=== PATIENT | male | born 1960 | race Caucasian/White ===

== ENCOUNTER 2017-02-27 14:20 | Emergency (ER) | payer OTHER ==
[2017-02-27 14:29] VITALS: TEMP 98.6
[2017-02-27 14:47] LABS: COLOR YELLOW; LEUKOCYTE ESTERASE,URINE NEGATIVE (NEGATIVE); NITRITE,URINE NEGATIVE (NEGATIVE); PH,URINE 6.5 (5.0-7.5)
--- NOTE | 2017-02-27 15:00 | UCPHY ---
H & P Time Seen by Provider: 02/27/17 14:58 Patient Type: Established HPI/ROS: CHIEF COMPLAINT: Right flank pain. HISTORY OF PRESENT ILLNESS: The patient is a 57-year-old male with a history of kidney stones who presents with atraumatic right flank pain since midnight last night. The pain woke him from sleep. The pain has not moved, nor migrated, nor expanded. It intermittently radiates to his right scapula. Usually when he gets kidney stones the pain radiates to his lower abdomen, wheree as this one does not. He denies movement related pain with getting in and out of bed, the stretcher here, or the car on his way here. He denies nausea, abdominal pain, vomiting, fever, dysuria, hematuria. He has had some loose stools since the day before the pain began. He takes a full breath fwithout difficulty. He has previously had surgical procedures to remove his kidney stones. He recalls lithotrypsy, not so sure about stents or basket retreival or laser. He is not ta take NSAIDS - not due to allergy or GI or renal issues. But, he had a stem cell injection through the pharynx into the base of the skull and C spine to see if he could get more stability. This occurred in early January. Aortic DIssection RF: none PE risk factors: none REVIEW OF SYSTEMS: Constitutional: No fever, no chills. Eyes: No diplopia. ENT: No sore throat. Cardiovascular: No chest pain, no palpitations. Respiratory: No cough, no shortness of breath, no wheezing. Gastrointestinal: No nausea vomiting. No abdominal pain. Loose stools for the past 2 days. Genitourinary: No hematuria or frequency. Musculoskeletal: As above. Skin: No rashes. Neurological: No headache. 10 point ROS otherwise negative Past Medical/Surgical History: Kidney stones, TBI. Social History: Nonsmoker. Smoking Status: Never smoked Physical Exam: General Appearance: Alert, no distress. Afebrile. Normal phonation. No respiratory distress. Tall, fit appearing man.. Eyes: Pupils equal and round no pallor or injection. No icterus ENT, Mouth: Mucous membranes moist. Neck: No adenopathy. holds his neck chronically stiff with the instability. No JVD. Trachea in midline. Respiratory: There are no retractions, lungs are clear to auscultation. Cardiovascular: Regular rate and rhythm, no murmur. Abdomen: Soft and nontender, no masses, bowel sounds normal. Femoral pulses equal. Neurological: Ox3. No motor weakness. Sensation intact. Gait nl. Skin: Warm and dry, no rashes. Musculoskeletal: No joint swelling. Moves well until he went to lay down, due to his neck, he proceded with caution. Further, with truncal twist he was uncomortable. Not so with side bending or flexion or extension. Extremities: No edema. Homans sign negative. No cords. Psychiatric: Nl affect. Constitutional: Initial Vital Signs Temperature (C) 37 C 02/27/17 14:27 Heart Rate 83 02/27/17 14:27 Respiratory Rate 18 02/27/17 14:27 Blood Pressure 108/72 02/27/17 14:27 O2 Sat (%) 95 02/27/17 14:27 O2 Delivery Mode Room Air Allergies/Adverse Reactions: NSAIDS (Non-Steroidal Anti-Inflamma Allergy (Verified 02/27/17 14:44) Home Medications: Medication Instructions Recorded UROCIT-K 12/08/14 Tamsulosin HCl [Flomax 0.4 MG (*)] 0.4 mg PO DAILY #10 cap 02/27/17 Medical Decision Making - Diagnostics Imaging: I viewed and interpreted images myself ED Course/Re-evaluation: 57-year-old male with a history of kidney stones presents with right flank pain that woke him from sleep at midnight last night. He does seem to have some back pain with flexion but none with twisting. He has no associated symptoms. He does report that this feels different from his previous kidney stones, due to location remaing in the back. Urinalysis shows no blood in the urine. I discussed with him the benefits and risks of obtaining a CT scan. I do not think he needs a CT scan at this time and he is in agreement. This patient also tells me he is receiving cervical stem cell injections and he is not allowed to have NSAIDs while receiving this treatment. KUB x-ray ordered. KUB did not show stone, mod stoool in RUQ though. He does not want pain medications, though asks for FLomax as he has received in the past. Doubt this is stone, most likely musculoskeletal. Would get CT if sx progress, not indicated at this time. Differential Diagnosis: DIfferential includes, not limited to: Renal colic, pyelonephritis, PE, rib strain, muscle strain, herniated disc, facet dysfunction, pandreatitis, cholecystitis. Departure - Departure Disposition: Home, Routine, Self-Care Clinical Impression: Right flank pain Condition: Good Instructions: Flank Pain (ED) Additional Instructions: Take Flomax as prescribed. Strain urine each every time, see the strainers provided Follow up with your primary care provider for reevaluation. Return for worsening pain, fever, abdominal pain, burning when you urinate, other urinary symptoms, or other serious worsening of condition. Referrals: Joy Yap MD [Primary Care Provider] - 2-3 days, if not improved Prescriptions: Tamsulosin HCl [Flomax 0.4 MG (*)] 0.4 mg PO DAILY #10 cap - PQRS PQRS Measurement: Does not apply. Report Scribed for: Loc Peterson Report Scribed by: Mynor Reed Date of Report: 02/27/17 Time of Report: 15:09
[2017-02-27 16:47] VITALS: BP 112/76; PULSE 84; RESP 14; O2SAT 96
[2019-02-27] MEDS ORDERED: NS 1,000 ML IV ONE (14:40)
== END 2017-02-27 16:43 | disposition home or self-care (01) ==
LOC: CED 14:20
DX: R10.9 Unspecified abdominal pain (principal); Z87.442 Personal history of urinary calculi
CPT/HCPCS: 74000; 96360; G0463; 81003-PO; 99214-PO